=== PATIENT | male | born 1960 | race Caucasian/White ===

== ENCOUNTER 2021-12-04 13:40 | Inpatient (IN) | payer OTHER ==
[~2021-12-04] VITALS: Ht 182.9 cm; Wt 93.4 kg
[~2021-12-04 13:40] MED LIST: ALLOPURINOL 30300 M1 PO; ATENOLOL 100MG100 MG PO; GLUCOPHAGE1000 MG PO; GLYBURIDE 5 MG T5 M1 PO; HUMALOG100 UNIT/1 SQ; LOVASTAT40; NORCO 5-325 TA1 EACH
[2021-12-04 13:41] VITALS: BP 160/80
[2021-12-04 14:09] LABS: HEMATOCRIT 30.5 % (42.0-52.0); MCH 26.3 pg (26.0-34.0); MCHC 32.7 g/dL (28.0-37.0); MCV 80.4 fL (80.0-100.0); PLATELET COUNT 148 thou/uL (150-400); RBC 3.79 mil/uL (4.50-6.00); RDW 16.6 % (10.5-14.5); WBC 2.9 thou/uL (4.0-11.0)
[2021-12-04 14:23] LABS: CALCIUM 7.5 mg/dL (8.5-10.1); CREATININE 2.9 mg/dL (0.7-1.3); POTASSIUM 4.6 mmol/L (3.5-5.1)
[2021-12-04 14:26] LABS: APTT 33.2 Seconds (24.5-32.8); D-DIMER 1.1 ug/mLFEU (0.19-0.50); INR 0.98; PROTIME 10.7 Seconds (10.5-12.1)
[2021-12-04 14:34] LABS: ALBUMIN 2.3 g/dL (3.4-5.0); MAGNESIUM 1.8 mg/dL (1.8-2.4); TOTAL BILIRUBIN 0.4 mg/dL (0.2-1.0)
[2021-12-04 15:16] LABS: ABSOLUTE NEUTROPHILS 2.3 thou/uL (1.4-8.2)
[2021-12-04 15:17] LABS: ANISOCYTOSIS 1+
[2021-12-04 18:25] VITALS: BP 145/74
[2021-12-04 20:04] VITALS: BP 153/89
[2021-12-04 20:22] LABS: % SATURATION 6 % (20-39); IRON 16 ug/dL (65-175); TIBC 282 ug/dL (250-450)
[2021-12-04 20:40] LABS: FOLIC ACID 18.3 ng/mL (8.6-58.9)
[2021-12-04] MEDS ORDERED: METFORMIN HCL500 M3 PO (20:55)
[2021-12-04] MEDS ORDERED: TOPROL XL50 MG PO (20:57)
[2021-12-04] MEDS ORDERED: PRAVASTATIN SOD20 MG PO (20:58)
[2021-12-04] MEDS ORDERED: AMITRIPTYLINE H25 M2 PO (20:58)
[2021-12-04] MEDS ORDERED: LEVO-T25 MCG PO (20:59)
[2021-12-04] MEDS ORDERED: IRBESARTAN150 MG PO (21:00)
[2021-12-04] MEDS ORDERED: LEVEMIR FL100 UNIT/2 SUBQ ×2 (21:02→21:03)
[2021-12-04 23:45] VITALS: BP 148/88
[2021-12-05 03:04] LABS: HEMOGLOBIN 9.2 gm/dL (14.0-18.0)
[2021-12-05 03:07] LABS: HEMATOCRIT 28.4 % (42.0-52.0); MCH 26.8 pg (26.0-34.0); MCHC 32.3 g/dL (28.0-37.0); MCV 83.1 fL (80.0-100.0); RBC 3.42 mil/uL (4.50-6.00); RDW 16.9 % (10.5-14.5)
[2021-12-05 03:22] LABS: WBC 1.2 thou/uL (4.0-11.0)
[2021-12-05 03:38] LABS: D-DIMER 0.78 ug/mLFEU (0.19-0.50)
[2021-12-05 03:48] LABS: ALBUMIN 1.8 g/dL (3.4-5.0); ANION GAP 14 mmol/L (7-16); BUN 63 mg/dL (7-18); CALCIUM 7.5 mg/dL (8.5-10.1); CHLORIDE 100 mmol/L (98-107); CO2 20 mmol/L (21-32); CREATININE 2.9 mg/dL (0.7-1.3); DIRECT BILIRUBIN < 0.1 mg/dL (<0.1-0.2); GLUCOSE 418 mg/dL (74-106); POTASSIUM 4.9 mmol/L (3.5-5.1); SGOT 40 U/L (15-37); SGPT 22 U/L (30-65); SODIUM 134 mmol/L (136-145); TOTAL BILIRUBIN 0.3 mg/dL (0.2-1.0); TOTAL PROTEIN 6.1 g/dL (6.4-8.2)
[2021-12-05 04:10] VITALS: BP 147/84
--- NOTE | 2021-12-05 05:03 | NUR ---
Admission history and assessments completed. Care plan initiated. Mediation reconciliation completed. IV antibiotics started. Up adlib in room without difficulty. Denies pain. Afebrile, vital signs and ryhthm stable.
--- NOTE | 2021-12-05 07:58 | EKG ---
[address] [address] ELECTROCARDIOGRAM REPORT Name: CELENA PELAYO GENE Room #: 357-P ADM IN M.R.#: [id number] Admission: 12/04/21 Attend Phys: John Maldonado MD Discharge: Date of : 58 Report #: [id number] [facility] ED Test Date: 2021-12-04 Test Time: 13:47:59 Pat Name: CELENA PELAYO Department: Room: 357 Gender: M Online Retailer: KERRY : 1960 Requested By: Anny Denton Order Number: [id number] MD: Haja Harris Measurements Intervals Superior Rate: 98 P: 16 DE: 161 QRS: -39 QRSD: 86 T: 53 QT: 352 QTc: 450 Interpretive Statements Sinus rhythm Probable left atrial enlargement Inferior infarct, old Anteroseptal infarct, age indeterminate Baseline wander in lead(s) I Compared to ECG 07/16/2001 10:48:25 No significant changes Electronically Signed On 12-05-2021 7:58:44 PC TECHNICIAN by Haja Harris [email or web address] <ELECTRONICALLY SIGNED> By: Haja Harris MD, [facility] 12/05/21 0758 1347 1347 Haja Harris MD, [facility] /EPI
[2021-12-05 08:00] VITALS: BP 152/78
[2021-12-05] MEDS ORDERED: LEVOTHYROXINE50 MC1 PO (08:39)
[2021-12-05] MEDS ORDERED: LEVO-T50 MCG PO (08:40)
--- NOTE | 2021-12-05 12:06 | 2DMMODE ---
[facility] [place] [address] 2 D/M-MODE ECHOCARDIOGRAM Name: CELENA PELAYO GENE Room #: 357-P ADM IN M.R.#: [id number] Admission: 12/04/21 Attend Phys: John Maldonado MD Discharge: Date of : 58 Report #: [id number] THIS REPORT FOR: cc: Ocsar Silverio MD, Steven E. MD Lammoglia, Francisco J. MD ~ APPROVED REPORT Study performed: 12/05/2021 11:20:12 EXAM: Limited 2D, Doppler, and color-flow Echocardiogram Patient Location: Bedside Room #: 357 Status: routine BSA: 2.15 HR: 81 bpm BP: 152/78 mmHg Rhythm: NSR Other Information Study Quality: Good Indications Elevated troponin, COVID + Hx: HTN, HLP, DM. 2D Dimensions IVSd: 11.05 (7-11mm) LVOT Diam: 22.77 (18-24mm) LVDd: 55.19 mm PWd: 8.59 (7-11mm) Ascending Ao: 37.23 (22-36mm) LVDs: 45.37 (25-40mm) Left Atrium: 29.93 (27-40mm) Aortic Root: 41.85 mm Volumes Left Atrial Volume (Systole) Single Plane 4CH: 56.59 mL Aortic Valve AoV Peak Richard.: 1.37 m/s AO Peak Gr.: 7.51 mmHg Mitral Valve E/A Ratio: 1.2 MV Decel. Time: 155.71 ms [facility] [address] [place] [address] 2 D/M-MODE ECHOCARDIOGRAM Name: CELENA PELAYO [facility] Room #: 357-P [facility] IN M.R.#: [id number] Admission: 12/04/21 Attend Phys: John Maldonado, Discharge: Date of : 58 Report #: [id number] MV E Max Richard.: 1.11 m/s MV A Richard.: 0.93 m/s MV PHT: 45.16 ms IVRT: 62.28 ms Pulmonary Valve PV Peak Richard.: 0.86 m/s PV Peak Gr.: 2.97 mmHg Pulmonary Vein P Vein S: 0.67 m/s P Vein D: 0.46 m/s P Vein S/D Ratio: 1.46 Tricuspid Valve RAP Estimate: 5.00 mmHg Left Ventricle The left ventricle is normal size. Regional wall motion abnormalities are noted. Mild basal septal hypertrophy is present. Left ventricular systolic function is moderately decreased. LVEF is 30-35%. Moderate diastolic dysfunction is present (pseudonormal filling). Right Ventricle The right ventricle is normal size. The right ventricular systolic function is normal. Atria The left atrium size is normal. The right atrium size is normal. Aortic Valve The aortic valve is normal in structure. No aortic regurgitation is present. There is no aortic valvular stenosis. Mitral Valve The mitral valve is normal in structure. Moderate mitral regurgitation. Tricuspid Valve The tricuspid valve is normal in structure. There is no tricuspid valve regurgitation noted. Unable to assess PA pressure. Pulmonic Valve The pulmonary valve is normal in structure. Trace pulmonic regurgitation. [facility] [address] [place] [address] 2 D/M-MODE ECHOCARDIOGRAM Name: CELENA PELAYO [facility] Room #: 357-P [facility] IN .R.#: [id number] Admission: 12/04/21 Attend Phys: John Maldonado, Discharge: Date of : 58 Report #: [id number] [place]els Aortic root is dilated (4.2cm). IVC is normal in size and collapses >50% with inspiration. Pericardium There is no pericardial effusion. <Conclusion> The left ventricle is normal size. Mild basal septal hypertrophy is present. LVEF is 30-35%. Moderate diastolic dysfunction is present (pseudonormal filling). The right ventricle is normal size. The left atrium size is normal. The aortic valve is normal in structure. The mitral valve is normal in structure. Moderate mitral regurgitation. The tricuspid valve is normal in structure. The pulmonary valve is normal in structure. Trace pulmonic regurgitation. Aortic root is dilated (4.2cm). There is no pericardial effusion. <ELECTRONICALLY SIGNED> By: Raj Valdes MD 12/05/21 1205 1205 1205 Raj Valdes MD /INF
[2021-12-05 12:20] VITALS: BP 134/73
--- NOTE | 2021-12-05 13:16 | NUR ---
INITIAL ASSESSMENT: SW reviewed chart and spoke with nursing and attending physician. Pt was admitted from home due to diverticulitis. Pt placed in Enhanced Isolation due to positive COVID test. Pt tested positive prior to admission. Per chart, pt has received the [facility] COVID vaccination. Pt with hx of HTN/DM/pancreatitis. Pt is afebrile and on room air. Pt is on IV abx and IV steroids. Pt has been started on Remdesivir. GI consulted. SW spoke with pt via phone. Introduced role of SW. Pt is alert/orientated x 4. Pt reports he lives at home with his and family. Prior to admission, pt was independent with ADLs. Pt has a cane to use if needed. Pt states he lives in a 3-level town house. There are about 20 steps inside the home. Pt's PCP is Dr. Oscar Silverio. No hx of HH services or post-acute placement. PT/OT ordered. Plan is for pt to discharge home when medically stable. EMILY is following to assist as needed with discharge planning.
[2021-12-05 15:40] VITALS: BP 149/74
--- NOTE | 2021-12-05 18:38 | NUR ---
VSS THROUGHOUT SHIFT, PT PLEASANT AND COOPERATIVE. UP AD JARETT, WORKED WITH PT/OT. BEDSIDE ECHO COMPLETE, RESULTS COMMUNICATED TO DR. WALKER, CARDIOLOGY CONSULTED. DECREASED IVF RATE, ADVISED PT TO VOID IN URINAL FOR ACCURATE UOP. DISCUSSED POC WITH PT, AGREEABLE AND COMPLIANT. FECAL OCCULT SAMPLE SENT DOWN AT END OF SHIFT. HOME LANTUS RESTARTED AND METOPROLOL RESTARTED.
[2021-12-05 20:01] VITALS: BP 150/81
--- NOTE | 2021-12-05 20:23 | HC ---
[facility] [place] [address] CONSULTATION Name: CELENA PELAYO [facility] Room #: 357-P ADM IN M.R.#: [id number] Admission: 12/04/21 Attend Phys: John Maldonado MD Discharge: Date of : 58 Report #: [id number] THIS REPORT FOR: cc: Oscar Silverio MD, Steven E. MD Geha,Lenard Hernandez MD ~ DATE OF SERVICE: 12/04/2021 INFECTIOUS DISEASES CONSULTATION REASON FOR CONSULTATION: I was asked to evaluate concerning COVID-19 pneumonia. HISTORY OF PRESENT ILLNESS: The patient was a 61-year-old diabetic previously vaccinated for COVID-19, presents with approximately 10-day history of nonproductive cough, low-grade fever, chills or sweats associated with nausea, one episode of emesis, no diarrhea, mild abdominal pain mostly in the mid upper abdomen, again with no diarrhea. He has had mild headache. No anosmia. Now with progressive shortness of breath. He has had weakness and visual hallucinations. He has not been checking his blood sugars. He is on insulin. He states that he has not eaten much in the last week. On presentation to the Emergency Room, he was hypoxic with O2 saturation 92%, blood pressure has been stable, he was tachycardic. Temperature up to 38.3 degrees. Chest x-ray showed bilateral pulmonary infiltrates. CT of the abdomen showed mild proximal sigmoid diverticular disease with some inflammatory change and his creatinine was 2.9. He has had no previous pneumonia. No history of tuberculosis, HIV or hepatitis. REVIEW OF SYSTEMS: A 14-point review of system was negative other than what has been described above. ALLERGIES: INDOMETHACIN. MEDICATIONS: As noted on his MAR, which was reviewed. PAST MEDICAL HISTORY: Diabetes, nephrolithiasis, diverticulitis, pancreatitis, gout, hypertension and tonsillectomy. FAMILY HISTORY: Negative for tuberculosis. SOCIAL HISTORY: He is a past smoker. Occasional alcohol intake. Again, no HIV risk factors. PHYSICAL EXAMINATION: GENERAL: He was afebrile. Maximum temperature was 38.3, hemodynamically stable. He was alert and cooperative. Currently on no oxygen. Mild dyspnea when he was walking across the room. SKIN: Without rash or decubitus. No palpable adenopathy. [address] [address] CONSULTATION Name: CELENA PELAYO [facility] Room #: [address] [place] [address] IN M.R.#: [id number] Admission: 12/04/21 Attend Phys: John Maldonado MD Discharge: Date of : 58 Report #: [id number] HEENT: Eyes without scleral icterus. Mouth without mucositis. NECK: Supple. LUNGS: Few crackles in the bases bilaterally without consolidation. HEART: Regular, without murmur, gallop or rub. ABDOMEN: Soft, mild tenderness in the mid abdomen. There was no tenderness in the left lower quadrant. There were no masses and no hepatosplenomegaly. GENITOURINARY: External genitalia without mass or lesion. Rectal examination not performed. Perianal examination was without lesion. EXTREMITIES: Without clubbing, cyanosis or edema. NEUROLOGIC: Cranial nerves were intact and strength in the upper and lower extremities was symmetric and within normal limits. SPINE: Nontender. PSYCHIATRIC: Mood without anxiety. LABORATORY DATA: Reviewed. MICROBIOLOGY: Reviewed. IMAGING: Chest x-ray reviewed. CT scan of the abdomen, pelvis and head reviewed. IMPRESSION: A 61-year-old with underlying diabetes, presents with COVID-19 pneumonia. He has been ill for less than 10 days, diagnosed 7 days ago. Now with progressive respiratory compromise. Also, has some changes of diverticular disease. I suspect his acute renal failure is due to dehydration and prerenal state. He is anemic and neutropenic related to COVID-19. Also, has a non-ST elevation myocardial infarction. RECOMMENDATION: Due to his hypoxia and bilateral pulmonary infiltrates and high risk for progressive disease, we will treat with dexamethasone and remdesivir in addition to multivitamins. He will be on Zosyn to cover intra-abdominal process. We will need to monitor his renal function, liver function and diabetes closely. He will remain on the COVID isolation unit for further care. <ELECTRONICALLY SIGNED> By: Lenard Chan MD 12/05/212022 28 52 Lenard Chan MD /nt
[2021-12-06 03:10] VITALS: BP 155/90
[2021-12-06 05:28] LABS: HEMATOCRIT 26.3 % (42.0-52.0); HEMOGLOBIN 9.1 gm/dL (14.0-18.0); MCH 27.6 pg (26.0-34.0); MCHC 34.5 g/dL (28.0-37.0); MCV 79.9 fL (80.0-100.0); RBC 3.29 mil/uL (4.50-6.00); RDW 16.6 % (10.5-14.5)
[2021-12-06 05:33] LABS: WBC 5.1 thou/uL (4.0-11.0)
[2021-12-06 05:51] LABS: ALBUMIN 1.7 g/dL (3.4-5.0); ANION GAP 13 mmol/L (7-16); BUN 64 mg/dL (7-18); CALCIUM 7.2 mg/dL (8.5-10.1); CHLORIDE 104 mmol/L (98-107); CO2 20 mmol/L (21-32); CREATININE 2.6 mg/dL (0.7-1.3); DIRECT BILIRUBIN < 0.1 mg/dL (<0.1-0.2); GLUCOSE 255 mg/dL (74-106); MAGNESIUM 1.9 mg/dL (1.8-2.4); POTASSIUM 4.5 mmol/L (3.5-5.1); SGOT 27 U/L (15-37); SGPT 22 U/L (30-65); SODIUM 137 mmol/L (136-145); TOTAL BILIRUBIN 0.7 mg/dL (0.2-1.0); TOTAL PROTEIN 5.7 g/dL (6.4-8.2)
--- NOTE | 2021-12-06 06:34 | NUR ---
PT MAKING PROGRESS TOWARDS GOALS. ON ROOM AIR THROUGHOUT THE NIGHT. NOTED DIMINISHED LUNG SOUNDS UPON INITIAL ASSESSMENT. LUNGS CTA UPPER LOBES AND CRACKLES IN BOTH LOWER LOBES THIS AM AFTER IV MEDICATIONS INFUSED. ENCOURAGED TO ASK PHYSICIAN TO SPEAK WITH HIM REGARDING HEART FAILURE.
[2021-12-06 07:07] VITALS: BP 176/104
[2021-12-06 08:19] LABS: CHOLESTEROL 171 mg/dL (<200); HDL CHOLESTEROL 39 mg/dL (>40); LDL CHOLESTEROL 87 mg/dL (<100); TC:HDL 4.4 Ratio (Not establshd); TRIGLYCERIDE 228 mg/dL (<150); VLDL 46 mg/dL (<40)
[2021-12-06 08:28] VITALS: BP 153/88
[2021-12-06 11:27] VITALS: BP 150/83
--- NOTE | 2021-12-06 12:55 | NUR ---
SW reviewed chart and spoke with nursing and attending physician. Pt remains in Enhanced Isolation due to COVID. Pt is afebrile and on room air. Pt is on IV abx/IV steroids and completing course of Remdesivir. Cardiology consulted. Pt to have an EGD in 4-6 weeks per GI. No weekend discharge planned. Plan is for pt to discharge home when medically stable. EMILY is following to assist as needed with discharge planning.
[2021-12-06 15:15] VITALS: BP 149/85
--- NOTE | 2021-12-06 18:21 | NUR ---
RN ASSUMED PT'S CARE AT 0700AM, PT IS A&OX4, PT IS ON ROOM AIR , PT DENIES SOB AT DAY SHIFT, PT STARTS NEW BP MEDICATIONS, PT'S HIGH BP HAS IMPROVED , PT DENIES CHEST PAIN AT DAY SHIFT. PT IS CONTINUING IV ABX AND TREAT COVID MEDICATIONS.
[2021-12-06 19:32] VITALS: BP 135/76
--- NOTE | 2021-12-06 20:03 | NUR ---
PROVIDER CALLED AND LEFT MESSAGE RE PLT COUNT [phone] FROM PREVIOUS 139.
--- NOTE | 2021-12-06 22:19 | NUR ---
PT RESTING IN BED. IVF INTACT. LUNGS DIMINISHED. PALE SKIN TONE. PT PROVIDED HS SNACK.
[2021-12-07 04:31] VITALS: BP 158/87
[2021-12-07 06:05] LABS: HEMATOCRIT 26.2 % (42.0-52.0); MCH 27.2 pg (26.0-34.0); MCHC 34.2 g/dL (28.0-37.0); MCV 79.6 fL (80.0-100.0); RBC 3.3 mil/uL (4.50-6.00); WBC 4.4 thou/uL (4.0-11.0)
[2021-12-07 06:48] LABS: ALBUMIN 1.8 g/dL (3.4-5.0); CALCIUM 7.4 mg/dL (8.5-10.1); CREATININE 2.4 mg/dL (0.7-1.3); DIRECT BILIRUBIN 0.1 mg/dL (<0.1-0.2); PHOSPHORUS 3.9 mg/dL (2.5-4.9); POTASSIUM 4.4 mmol/L (3.5-5.1); TOTAL BILIRUBIN 0.2 mg/dL (0.2-1.0); TOTAL PROTEIN 5.6 g/dL (6.4-8.2)
[2021-12-07 07:35] VITALS: BP 162/94
[2021-12-07 11:27] VITALS: BP 144/84
[2021-12-07 15:21] VITALS: BP 151/91
[2021-12-07 19:52] VITALS: BP 151/89
[2021-12-08 02:10] VITALS: BP 147/81
--- NOTE | 2021-12-08 03:39 | NUR ---
PT MAKING PROGRESS TOWARDS GOALS. ON ROOM AIR, DENIED ANY EPISODES OF SOA. LUNGS CLEAR.
[2021-12-08 05:42] LABS: HEMATOCRIT 26.9 % (42.0-52.0); MCHC 33.6 g/dL (28.0-37.0); MCV 80.4 fL (80.0-100.0); RBC 3.34 mil/uL (4.50-6.00); RDW 16.9 % (10.5-14.5); WBC 4.3 thou/uL (4.0-11.0)
[2021-12-08 05:57] LABS: ALBUMIN 1.8 g/dL (3.4-5.0); ANION GAP 12 mmol/L (7-16); BUN 53 mg/dL (7-18); CALCIUM 7.4 mg/dL (8.5-10.1); CHLORIDE 105 mmol/L (98-107); CO2 22 mmol/L (21-32); CREATININE 2.3 mg/dL (0.7-1.3); DIRECT BILIRUBIN < 0.1 mg/dL (<0.1-0.2); GLUCOSE 244 mg/dL (74-106); MAGNESIUM 1.9 mg/dL (1.8-2.4); PHOSPHORUS 3.9 mg/dL (2.5-4.9); POTASSIUM 4.5 mmol/L (3.5-5.1); SGOT 80 U/L (15-37); SGPT 70 U/L (30-65); SODIUM 139 mmol/L (136-145); TOTAL BILIRUBIN 0.2 mg/dL (0.2-1.0); TOTAL PROTEIN 5.3 g/dL (6.4-8.2)
[2021-12-08 07:59] VITALS: BP 161/90
[2021-12-08 11:44] VITALS: BP 146/85
[2021-12-08 16:49] VITALS: BP 148/89
--- NOTE | 2021-12-08 19:46 | NUR ---
RN ASSUMED PT'S CARE AT 0700-1900PM, PT IS DROWSY, PT CAN OPEN HER EYES BY VOICE, BUT PT DOES NOT TALK AND DOES NOT FOLLOW COMMANDS, PT 'S COMFORT CARE AND HOSPICE ORDERS ARE STOPPING NOW PER FAMILY REQUEST , PT IS CONTINUING PPN @80ML/HR, PT IS ON O2 2L/MIN/NC, PT'S VS AND O2SAT ARE STABLE AT DAY SHIFT, PT IS TOLTAL CARE , PT NEEDS HELP ADL, PT IS OFF COVID ISOLATION TODAY, PT'S FAMILY VISIT PT TODAY.
--- NOTE | 2021-12-08 19:55 | NUR ---
RN ASSUMED PT'S CARE AT 0700AM, PT IS A&OX4, PT IS ON ROOM AIR , PT'S O2SAT AND VS ARE STABLE, PT'S N/V HAS IMPROVED UNTILL AFTERNOON , PT IS CONTINUING IV ABX AND TREAT COVID MEDICATIONS, PT DENIES SOB AND PAIN AT DAY SHIFT.
[2021-12-08 20:57] VITALS: BP 163/92
[2021-12-09 04:50] VITALS: BP 157/93
--- NOTE | 2021-12-09 05:27 | NUR ---
PT IS A&OX4, PLEASANT AND COOPERATIVE, ABLE TO MAKE WANTS AND NEEDS KNOWN TO STAFF. PT UP AD JARETT TO BATHROOM, GAIT STEADY. CONTINUES ON IV ANTIBIOTICS. PT STATES HE IS FEELING MUCH BETTER AND IS "READY TO GET HOME." PROGRESSING TOWARD GOAL OF DISCHARGE. WILL CONTINUE TO OBSERVE FOR CHANGES
[2021-12-09 07:55] VITALS: BP 150/89
[2021-12-09 11:16] LABS: ABSOLUTE NEUTROPHILS 5.6 thou/uL (1.4-8.2); BASOPHILS 0.1 % (0.0-2.0); EOSINOPHILS 0.3 % (0.0-3.0); HEMATOCRIT 29.4 % (42.0-52.0); HEMOGLOBIN 9.5 gm/dL (14.0-18.0); LYMPHOCYTES 6.3 % (24.0-44.0); MCH 26.3 pg (26.0-34.0); MCHC 32.5 g/dL (28.0-37.0); MCV 80.9 fL (80.0-100.0); MONOCYTES 7.1 % (1.0-8.0); PLATELET COUNT 184 thou/uL (150-400); POLYS 86.2 % (36.0-66.0); RBC 3.63 mil/uL (4.50-6.00); RDW 16.9 % (10.5-14.5); WBC 6.5 thou/uL (4.0-11.0)
[2021-12-09 11:34] LABS: CALCIUM 8.3 mg/dL (8.5-10.1); CREATININE 2.1 mg/dL (0.7-1.3); MAGNESIUM 1.8 mg/dL (1.8-2.4); POTASSIUM 4.6 mmol/L (3.5-5.1)
--- NOTE | 2021-12-09 11:36 | NUR ---
DISCHARGE NOTE: EMILY reviewed chart and spoke with nursing and attending physician. Pt remains in Enhanced Isolation due to COVID. Pt is afebrile and on room air. Pt is medically stable for discharge home today. EMILY spoke with pt via phone to provide update and discuss discharge plan. Pt is aware and in agreement with plan. Pt declines having any discharge needs at this time. Pt states his family will be able to provide transportation home when discharged. EMILY updated attending physician. SW is available to assist should needs arise.
[2021-12-09 11:51] VITALS: BP 147/84
[2021-12-09 15:27] VITALS: BP 168/94
[2021-12-09] MEDS ORDERED: IRON325 PO (16:55)
[2021-12-09] MEDS ORDERED: CARVEDILOL12.5 MG PO (16:57)
[2021-12-09] MEDS ORDERED: CEFDINIR300 MG PO (16:59)
[2021-12-09] MEDS ORDERED: METRONIDAZOLE500 M4 PO (17:03)
[2021-12-09 17:30] VITALS: BP 155/80
--- NOTE | 2021-12-09 18:27 | NUR ---
RN ASSUMED PT'S CARE AT 0700-1800PM, PT IS A&OX4, PT IS ON ROOM AIR , PT'S VS AND O2SAT ARE STABLE, PT DENIES PAIN, SOB AND N/V TODAY, RN RECEIVED ORDER TO DC PT TO HOME, PT FINISHED HIS IV ABX AT 1800PM, PT UNDERSTANDS DC TEACHING WELL , INCLUDIND NEW MEDICATIONS AND COVID ISOLATION . 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
== END 2021-12-09 18:34 | disposition home or self-care (01) | DRG 871 ==
LOC: ER 13:40 → 3W 17:48 → EROBS 17:48 → 3W 18:29
PROVIDERS: Nurse Practitioner Family; Specialist; ADMIT Internal Medicine; ATTEND Internal Medicine
PROC: XW033E5 Introduction of Remdesivir Anti-infective into Peripheral Vein, Percutaneous Approach, New Technology Group 5 (ICD-10-PCS; principal; 2021-12-04)
DX: A41.9 Sepsis, unspecified organism (principal); U07.1 COVID-19; J12.82 Pneumonia due to coronavirus disease 2019; I21.4 Non-ST elevation (NSTEMI) myocardial infarction; N17.0 Acute kidney failure with tubular necrosis; G93.40 Encephalopathy, unspecified; K57.32 Diverticulitis of large intestine without perforation or abscess without bleeding; D61.818 Other pancytopenia; I42.9 Cardiomyopathy, unspecified; E78.5 Hyperlipidemia, unspecified; I12.9 Hypertensive chronic kidney disease with stage 1 through stage 4 chronic kidney disease, or unspecified chronic kidney disease; E11.22 Type 2 diabetes mellitus with diabetic chronic kidney disease; N18.9 Chronic kidney disease, unspecified; R93.3 Abnormal findings on diagnostic imaging of other parts of digestive tract; R44.1 Visual hallucinations; R79.1 Abnormal coagulation profile; K59.00 Constipation, unspecified; R94.6 Abnormal results of thyroid function studies; M10.9 Gout, unspecified; Z87.442 Personal history of urinary calculi; Z79.899 Other long term (current) drug therapy; Z88.6 Allergy status to analgesic agent; Z87.891 Personal history of nicotine dependence; Z79.4 Long term (current) use of insulin; Z79.84 Long term (current) use of oral hypoglycemic drugs
CPT/HCPCS: 10879